=== PATIENT | male | born 1960 | race African-American/Black ===

== ENCOUNTER 2021-11-19 15:35 | Emergency (ER) | payer MEDICAID ==
[~2021-11-19] VITALS: Ht 177.8 cm; Wt 92.9 kg
[2021-11-19 16:05] VITALS: BP 166/89
--- NOTE | 2021-11-19 16:43 | PHYS DOC ---
Past Medical History Additional Past Medical Histor: cardiac stent Past Surgical History: No Surgical History General Adult EDM: Chief Complaint: EYE PROBLEMS HPI: HPI: Patient is a 61-year-old male who presents today with left eye concerns, bilate ral second toe pain, and bugs crawling on his back. Patient states that he lives at [facility], he states that he has multiple concerns today and that he has been unable to see his primary care physician because they are located in [place]. Patient states that he feels like there is bugs crawling in his left eye, he has been flushing his left eye out with water but he is concerned there is something in there, he also states that he is concerned about his feet because his toes are discolored and there is wounds located on the second toe, and he also feels that he has bugs crawling on his back. Patient states that the issue with his feet has been ongoing for quite some time he says years 2 months, he said the eye issue has been this this week as well as the bugs crawling on his back. Patient states that he does not know when his last tetanus shot was. Patient states he does not wear contacts or glasses, and is never seen a eye doctor. Review of Systems: Review of Systems: Constitutional: Denies fever or chills. [] Eyes: Left eye pain denies change in visual acuity. [] HENT: Denies nasal congestion or sore throat. [] Respiratory: Denies cough or shortness of breath. [] Cardiovascular: Denies chest pain or edema. [] GI: Denies abdominal pain, nausea, vomiting, bloody stools or diarrhea. [] : Denies dysuria. [] Musculoskeletal: Bilateral second toe pain Integument: Bugs crawling on the back Neurologic: Denies headache, focal weakness or sensory changes. [] Endocrine: Denies polyuria or polydipsia. [] Lymphatic: Denies swollen glands. [] Psychiatric: Denies depression or anxiety. [] Heart Score: C/O Chest Pain: No Risk Factors: Risk Factors: DM, Current or recent (<one month) smoker, HTN, HLP, family history of CAD, obesity. Risk Scores: Score 0 - 3: 2.5% MACE over next 6 weeks - Discharge Home Score 4 - 6: 20.3% MACE over next 6 weeks - Admit for Clinical Observation Score 7 - 10: 72.7% MACE over next 6 weeks - Early Invasive Strategies Current Medications: Current Medications Medications (Trade) Dose Ordered Sig/Devante Start Time Stop Time Status Last Admin Dose Admin Fluorescein Sodium (Ful-Alesia) 1 strip 1X ONCE 11/19/21 16:45 11/19/21 16:46 UNV Tetracaine HCl (Tetracaine) 1 drop 1X ONCE 11/19/21 16:45 11/19/21 16:46 UNV Allergies: Allergies: Allergies Coded Allergies Type Severity Reaction Last Updated Verified No Known Drug Allergies 11/19/21 No Physical Exam: PE: Constitutional: Well developed, well nourished, no acute distress, non-toxic appearance. [] HENT: Normocephalic, atraumatic, bilateral external ears normal, oropharynx moist, no oral exudates, nose normal. [] Eyes: PERRLA, EOMI, left conjunctiva jeffery and drainage is clear, right eye is red not drainage [] Neck: Normal range of motion, no tenderness, supple, no stridor. [] Cardiovascular:Heart rate regular rhythm, no murmur [] Lungs & Thorax: Bilateral breath sounds clear to auscultation [] Abdomen: Bowel sounds normal, soft, no tenderness, no masses, no pulsatile masses. [] Skin: Bilateral second toe has areas of erythema noted that are approximately half a centimeter in diameter appear to be a blister that has broken, no redness or warmth noted. Warm, dry, no erythema, no rash. [] Back: No tenderness, no CVA tenderness. [] Extremities: No tenderness, no cyanosis, no clubbing, ROM intact, no edema. [] Neurologic: Alert and oriented X 3, normal motor function, normal sensory function, no focal deficits noted. [] Psychologic: Affect normal, judgement normal, mood normal. [] Indication: left eye pain and swelling and right eye redness Procedure: The patient was placed in the appropriate position. Tetracaine 0.5% eyedrops 4 drops were instilled in bilateral eyes, after appropriate anesthetizing was obtained, fluorescein was used to stain bilateral eyes, using the Omalley lamp left eye showed a large corneal abrasion, right eye showed no corneal abrasion noted, I did flip the lens and looked at the eyelids patient feels like he has something left in his eye and there was no debris noted. The patient tolerated the procedure well. see nurses note for visual acuity Complications: none Current Patient Data: Vital Signs: Vital Signs Date Time Temp Pulse Resp B/P (MAP) Pulse Ox O2 Delivery O2 Flow Rate FiO2 11/19/21 16:05 98.1 99 18 166/89 (114) 98 Room Air 98.1 EKG: EKG: [] Radiology/Procedures: Radiology/Procedures: [] Course & Med Decision Making: Course & Med Decision Making Pertinent Labs and Imaging studies reviewed. (See chart for details) Patient was informed that he had a corneal abrasion and no debris was seen in the eye, I will treat him with erythromycin ointment to be placed 4 times daily for 5 straight days and he is to follow-up with Dr. Kraft in ophthalmology for further evaluation and management of this. Patient did ask about his feet I did state that he will need to follow-up with Dr. Garcia with podiatry services for further evaluation of his feet and evaluation of his nails, patient also expressed the need for primary care I will give him information about local clinics in the area as well as Dr. Goodman and the [facility] facility that can see him on a regular basis for all of his medical needs. Patient verbalized understanding of this and agreeable with the plan of care. Abhinav Disclaimer: Abhinav Disclaimer: This electronic medical record was generated, in whole or in part, using a voice recognition dictation system. Departure Departure Impression: Primary Impression: Corneal abrasion, left Qualified Codes: S05.02XA - Injury of conjunctiva and corneal abrasion without foreign body, left eye, initial encounter Additional Impression: Toe abrasion Qualified Codes: S90.416A - Abrasion, unspecified lesser toe(s), initial encounter Disposition: HOME / SELF CARE / HOMELESS Condition: STABLE Referrals: EMIL KRAFT MD, ZHIPENG DPM Patient Instructions: Abrasions, Eye - Corneal Abrasion Additional Instructions: Erythromycin ointment half-inch ribbon to the left eye 4 times daily for 5 days Keep the wounds on your feet clean and dry watching for any signs and symptoms of infection Follow-up with Dr. Kraft who is an internet sales associate for further evaluation and management of your corneal abrasion Follow-up with Dr. Garcia who is a bonderizer for further evaluation and management of your foot concerns Follow-up with one of the listed clinics below or one of the [facility] physicians and the brochure to establish primary care. [facility] [address] [place] [address] [facility] [address] [place] [place] [address] [facility] [address] [facility] [place] [address] [facility] [address] [place] [address] [facility] [address] [place] [address] [address] [place] [address] [address] [place] [address] [employer] [facility] [address] [place] [address] [facility] [address] [place] [address] [facility] [address] [place] [address] Scripts Erythromycin Base (Erythromycin) 1 Gm Oint...g. 0.25 INCH OS QID for 5 Days, #1 MISC Prov: PAVAN GOLDBERG DITCH REPAIRER 11/19/21 PAVAN GOLDBERG DITCH REPAIRER Nov 19, 2021 16:43
[2021-11-19] MEDS ORDERED: DIPHTH,PERTUSS(ACELL),TET TOX 0.5 ML DISP.SYRIN. VAX IM ONE (16:45)
[2021-11-19] MEDS ORDERED: FLUORESCEIN OPHTH TEST STRIP. OU ONE (16:45)
[2021-11-19] MEDS ORDERED: TETRACAINE 0.5% OPHTH SOLUTION 4ML BOTTLE. OU ONE (16:45)
[2021-11-19] MEDS ORDERED: ERYT1OIN3 OS (18:04)
[2021-11-19] MEDS ORDERED: ERYTHROMYCIN 0.5% OPHTH OINTMENT 1GM TUBE. OS ONE (18:30)
== END 2021-11-19 18:27 | disposition home or self-care (01) ==
LOC: ER 15:35
DX: S90.415A Abrasion, left lesser toe(s), initial encounter (principal); S90.414A Abrasion, right lesser toe(s), initial encounter; S05.02XA Injury of conjunctiva and corneal abrasion without foreign body, left eye, initial encounter; Z95.5 Presence of coronary angioplasty implant and graft; X58.XXXA Exposure to other specified factors, initial encounter; Y93.89 Activity, other specified; Y92.89 Other specified places as the place of occurrence of the external cause; Y99.8 Other external cause status
CPT/HCPCS: 90471; 90715; 99283-25